=== PATIENT | female | born 1955 | race Caucasian/White ===

== ENCOUNTER 2024-03-18 11:40 | Emergency (ER) | payer MEDICARE, OTHER, SELFPAY ==
[2024-03-18 11:55] VITALS: BP 126/85
--- NOTE | 2024-03-18 14:34 | ED.GENMED ---
History of Present Illness
General
Chief Complaint: Fall
Source: patient
Exam Limitations: none
Time Seen by Provider: 03/18/24 13:23
Nursing documentation reviewed up to this point in time: agreed with
History of Present Illness
History of Present Illness:
68-year-old female presenting to the emergency department after slipping in the bathroom hitting the back of her head denies loss of consciousness did notice some bleeding and laceration to the back of the head. Denies any numbness weakness or neck
pain.
Review of Systems
Review of Systems
Allergies reviewed?: Yes
All Other Systems: ROS reviewed and negative except as documented in HPI and ROS
Phy Exam
Physical Exam
Physical Exam:
GENERAL: Alert , in no apparent distress
EYE: pupils equal and reactive
NECK: Supple, no significant adenopathy.
ENT: Laceration to the occipital scalp roughly 2 cm in length o/p clr, mmm.
CARDIAC: Regular rate and rhythm .
LUNGS: Clear breath sounds bilaterally, no acute respiratory distress, no wheezes/rales/rhonchi
ABDOMEN: Soft, without focal tenderness, no r/g, no cvat
NEUROLOGICAL: Alert and oriented, no focal neuro deficits 5 out of 5 upper and lower extremity strength normal sensation with palpating bilaterally walking steady gait
SKIN: Warm and dry, skin intact.
MUSCULOSKELETAL: No edema, well perfused.
PSYCH: Normal and appropriate interaction.
Course
Orders/Labs/Results
Orders:
Orders
03/18/24 12:01
CT Head W/o Iv Contrast Urgent
Comment:
Reason For Exam: fall
03/18/24 12:23
Cervical Spine wo Contrast CT [CT Cervical Spine W/o Iv Contr] Urgent
Comment:
Reason For Exam: pain
Vital Signs
Initial and Last Documented VS:
Initial Vital Signs
Temp Pulse Resp BP Pulse Ox
97.7 F 75 16 126/85 98
03/18/24 11:55 03/18/24 11:55 03/18/24 11:55 03/18/24 11:55 03/18/24 11:55
Last Documented Vital Signs
Temp Pulse Resp BP Pulse Ox
97.7 F 75 16 126/85 98
03/18/24 11:55 03/18/24 11:55 03/18/24 11:55 03/18/24 11:55 03/18/24 11:55
Procedures
Laceration Closure
Occipital:
Status of Wound: clean
Size of Wound in cm: 2.5
Description of Wound Edges: sharp
Preparation: cleaned with saline
Revision/Debridement: routine- no revision
Wound exploration: explored to base- no FB and no tendon involvement
Type of Closure: Dermabond-skin glue
MDM/Problems Addressed
MDM/Problems Addressed:
68-year-old female presenting after a slip and fall prior to arrival hit the back of her head did not lose consciousness normal neurologic evaluation head and neck CT without emergent findings laceration closed with the hair apposition technique
otherwise patient stable for discharge given a tetanus shot prior to discharge. Return precautions given.
*Critical Care Note
Total Time (30-74mins, 75-104mins- exclusive of procedures): Not Applicable
ED Attending Note
-
Portions of this chart may have been created with voice recognition software.� Occasional wrong word or��sound alike� substitutions may have occurred due to the inherent limitations of voice recognition software.
Discharge Plan
Departure
Patient Disposition: Home (Routine Discharge)
Date of Disposition: 03/18/24
Time of Disposition: 14:38
Patient with high blood pressure during this ER visit?: No
Condition: Good
Covid-19: Not Applicable
Discharge Problem:
Laceration of scalp, Fall
Instructions: Laceration Repair With Glue (DC), Preventing falls in adults
Referrals:
NONE,* [Family Provider] -
Activity Restrictions/Additional Instructions:
You came to the emergency department today with concerns of a fall. You had a laceration that was closed with Dermabond. Here you had a head CT and a neck CT without emergent findings. Please follow closely as an outpatient with the primary care
doctor. Return to the emergency department for any worsening, new or concerning symptoms.
Interventions
Interventions:
*Risk Screen - Suicide Last Done: 03/18/24 11:55
*General Assessment Last Done: 03/18/24 13:08
*Neglect/Abuse Screening Last Done: 03/18/24 11:55
*ED COVID-19 Vaccine History Last Done: 03/18/24 13:08
ED-Musculoskeletal Assessment Last Done: 03/18/24 13:08
ED- Neurological Assessment Last Done: 03/18/24 13:08
ED-Skin Assessment Last Done: 03/18/24 13:08
Discharge Date and Time
Print Language: [place]
[2024-03-18] MEDS: ADACEL 0.5 ML IM (14:42)
[2024-03-18 14:51] VITALS: BP 120/80
== END 2024-03-18 14:52 | disposition home or self-care (01) ==
LOC: EMR 11:40
PROVIDERS: EMERGENCY PHYSICIAN Emergency Medicine
DX: S01.01XA Laceration without foreign body of scalp, initial encounter (principal); W01.0XXA Fall on same level from slipping, tripping and stumbling without subsequent striking against object, initial encounter; Z23 Encounter for immunization
CPT/HCPCS: 99284; 12001; 90471; 70450; 72125; 90715

== ENCOUNTER → 2024-09-19 08:52 | Outpatient (REF) | payer MEDICARE, OTHER, SELFPAY ==
--- NOTE | 2024-09-19 11:19 | CARDSERVLU ---
Echocardiogram with [facility] completed after protocol screening completed. Allergies verified.
Patent IV site: 22 g angio inserted in LAC without incident, 1st attempt
IV site flushed with 0.9% NaCl pre and post administration.
Diluted bolus method utilized to enhance visualization of ventricular hsu.
Total volume given: 4 mL
Patient tolerated all procedures well without complications.
Upon completion of stdy, IV d/c'd and bandage applied after pressure maintained.
== END ==
LOC: RCS 08:52
PROVIDERS: ATTENDING PHYSICIAN Internal Medicine Cardiovascular Disease
DX: R93.1 Abnormal findings on diagnostic imaging of heart and coronary circulation (principal)
CPT/HCPCS: 93017; 93350; Q9950

== ENCOUNTER → 2024-12-24 12:12 | Outpatient (REF) | payer MEDICARE, OTHER, SELFPAY | LOC: DHSLP 12:12 | PROVIDERS: ATTENDING PHYSICIAN Internal Medicine Cardiovascular Disease | DX: G47.30 Sleep apnea, unspecified (principal); R06.83 Snoring | CPT/HCPCS: 95800 ==